=== PATIENT | female | born 1950 | race Two or more races ===

== ENCOUNTER → 2021-05-06 08:20 | Outpatient (CLI) | payer MEDICARE, BC, SELFPAY ==
--- NOTE | 2021-05-06 16:40 | LES_PTH ---
PATIENT: MARIA TERESA LIMA LOC: [facility] U#:[id number] AGE/SX: 75/F ROOM: RE05/06/[address]: Dr. 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 Negative for malignancy. SJ:tiffany 05/08/2021 COMMENT Correlation with clinical findings and appropriate follow up are necessary. Case has been reviewed in consultation with Dr. Padilla who concurs with the above diagnosis. IDC:AM MICROSCOPIC DESCRIPTION Slides are reviewed. GROSS DESCRIPTION Received is one container labeled with the patient's name and not further designated. The specimen consists of a punch biopsy of harrington-white skin measuring 0.3 cm in diameter and 0.1 cm in length. The specimen is totally submitted in one cassette. / SJ:tiffany 05/07/21 TC:3 CPT: 57029
== END ==
PROVIDERS: Visit Provider Otolaryngology
DX: H93.8X1 Other specified disorders of right ear (principal)
CPT/HCPCS: 88305